=== PATIENT | female | born 1960 | race African-American/Black ===

== ENCOUNTER 2016-11-23 08:27 | Outpatient (CLI) | payer OTHER | END 2016-11-23 18:31 | disposition home or self-care (01) | LOC: SLB 08:27 | PROVIDERS: ATTEND Family Medicine | DX: E05.90 Thyrotoxicosis, unspecified without thyrotoxic crisis or storm (principal) | CPT/HCPCS: 36415; 84443-TC ==

== ENCOUNTER 2017-08-09 10:33 | Outpatient (CLI) | payer OTHER ==
[2017-08-09 11:14] LABS: BILIRUBIN,URINE NEGATIVE (NEGATIVE); BLOOD, URINE NEGATIVE (NEGATIVE); CLARITY/URINE CLEAR (CLEAR); COLOR,URINE YELLOW (YELLOW); GLUCOSE,URINE NEGATIVE (NEGATIVE); KETONES,URINE NEGATIVE (NEGATIVE); LEUKOCYTE ESTERASE ,URINE NEGATIVE (NEGATIVE); NITRITE, URINE NEGATIVE (NEGATIVE); PROTEIN URINE NEGATIVE (NEGATIVE); UROBILINOGEN,URINE 0.2 (0.2-1.0)
[2017-08-09 11:27] LABS: BASOPHILS # (AUTO) 0.1 K/uL (0.0-0.2); BASOPHILS % (AUTO) 1.8 % (0.0-2.0); EOSINOPHILS # (AUTO) 0.1 K/uL (0.0-0.4); EOSINOPHILS % (AUTO) 3.3 % (0.0-4.0); HEMATOCRIT 47.2 % (36-48); LYMPHOCYTES # (AUTO) 1.4 K/uL (1.0-5.5); LYMPHOCYTES % (AUTO) 40.2 % (20.5-51.5); MEAN CORPUSCULAR HEMOGLOBIN 30 pg (27-31); MEAN CORPUSCULAR HGB CONC 32 % (32-36); MEAN CORPUSCULAR VOLUME 93 fL (79.0-98.0); MONOCYTES # (AUTO) 0.3 K/uL (0.0-1.0); MONOCYTES % (AUTO) 8.7 % (1.7-9.3); NEUTROPHILS # (AUTO) 1.6 K/uL (1.8-7.7); PLATELET COUNT (AUTO) 285 K/uL (130-430); RED BLOOD CELL COUNT(AUTO) 5.09 MIL/uL (4.2-6.2); RED CELL DISTRIBUTION WIDTH 11.2 % (9.0-15.0); WHITE BLOOD COUNT (AUTO) 3.5 K/uL (4.8-10.8)
[2017-08-09 11:41] LABS: ALBUMIN 4.8 g/dL (3.4-4.8); BILIRUBIN,DIRECT 0.2 mg/dL (0.0-0.3); CALCIUM 9.4 mg/dL (8.4-11.0); CREATININE 0.82 mg/dL (0.55-1.30); POTASSIUM 3.5 mmol/L (3.5-5.1); THYROID STIMULATING HORMONE 2.1 uIu/mL (0.34-4.82); TOTAL BILIRUBIN 0.7 mg/dL (0.0-1.0); TOTAL IRON BIND. CAPACITY 363 ug/dL (250-450)
[2017-08-10 08:19] LABS: T3 UPTAKE 25 % (24-39); T4 (THYROXINE) 9.7 ug/dL (4.5-12.0)
[2017-08-10 09:22] LABS: FOLATE (FOLIC ACID) >20.0 ng/mL (>3.0); HEMOGLOBIN A1C 4.8 % (4.8-5.6)
[2017-08-11 15:04] LABS: CREATININE, URINE 70.3 mg/dL; MICROALBUMIN URINE RANDOM 4.6 ug/ml (NOT ESTABLISHED); MICROALBUMIN/CREAT RATIO, UR 6.5 MG/G CRE (0.0-30.0)
== END 2017-08-09 17:09 | disposition home or self-care (01) ==
LOC: SLB 10:33
PROVIDERS: ATTEND Family Medicine
DX: Z00.01 Encounter for general adult medical examination with abnormal findings (principal); R79.89 Other specified abnormal findings of blood chemistry
CPT/HCPCS: 36415; 80053; 80061; 81003; 82043; 82248-TC; 82306; 82570; 82607; 82746; 83036; 83540-TC; 83550-TC; 84436; 84443-TC; 84479; 85025

== ENCOUNTER 2017-08-23 08:31 | Outpatient (CLI) | payer OTHER | END 2017-08-23 18:55 | disposition home or self-care (01) | LOC: SMA 08:31 | PROVIDERS: ATTEND Family Medicine | DX: Z12.31 Encounter for screening mammogram for malignant neoplasm of breast (principal) | CPT/HCPCS: G0202 ==

== ENCOUNTER 2018-03-14 11:21 | Outpatient (CLI) | payer OTHER ==
[2018-03-14 12:36] LABS: ALBUMIN 4.2 g/dL (3.4-4.8); BILIRUBIN,DIRECT 0.2 mg/dL (0.0-0.3); TOTAL BILIRUBIN 0.5 mg/dL (0.0-1.0)
[2018-03-15 13:07] LABS: HEPATITIS A AB, IgM Negative (Negative); HEPATITIS B CORE AB, IgM Negative (Negative); HEPATITIS B SURFACE AG Negative (Negative)
== END 2018-03-14 19:26 | disposition home or self-care (01) ==
LOC: SLB 11:21
PROVIDERS: ATTEND Family Medicine
DX: R79.89 Other specified abnormal findings of blood chemistry (principal)
CPT/HCPCS: 36415; 80074; 80076; 82607

== ENCOUNTER 2018-08-20 09:49 | Outpatient (CLI) | payer OTHER ==
[2018-08-20 10:20] LABS: BASOPHILS % (AUTO) 0.9 % (0.0-2.0); EOSINOPHILS # (AUTO) 0.1 K/uL (0.0-0.4); EOSINOPHILS % (AUTO) 1.4 % (0.0-4.0); HEMATOCRIT 42.3 % (36-48); HEMOGLOBIN 14.1 g/dL (12.0-16.0); LYMPHOCYTES # (AUTO) 1.5 K/uL (1.0-5.5); LYMPHOCYTES % (AUTO) 39.7 % (20.5-51.5); MEAN CORPUSCULAR HEMOGLOBIN 31 pg (27-31); MEAN CORPUSCULAR HGB CONC 33 % (32-36); MEAN CORPUSCULAR VOLUME 92 fL (79.0-98.0); MONOCYTES # (AUTO) 0.3 K/uL (0.0-1.0); MONOCYTES % (AUTO) 8.3 % (1.7-9.3); NEUTROPHILS % (AUTO) 49.7 % (40.0-70.0); RED CELL DISTRIBUTION WIDTH 11.1 % (9.0-15.0); WHITE BLOOD COUNT (AUTO) 3.9 K/uL (4.8-10.8)
[2018-08-20 10:25] LABS: BILIRUBIN,URINE NEGATIVE (NEGATIVE); BLOOD, URINE NEGATIVE (NEGATIVE); CLARITY/URINE CLEAR (CLEAR); COLOR,URINE YELLOW (YELLOW); GLUCOSE,URINE NEGATIVE (NEGATIVE); KETONES,URINE NEGATIVE (NEGATIVE); LEUKOCYTE ESTERASE ,URINE NEGATIVE (NEGATIVE); NITRITE, URINE NEGATIVE (NEGATIVE); PROTEIN URINE NEGATIVE (NEGATIVE); UROBILINOGEN,URINE 0.2 (0.2-1.0)
[2018-08-20 10:38] LABS: PLATELET COUNT (AUTO) 258 K/uL (130-430)
[2018-08-20 10:53] LABS: ALBUMIN 4.5 g/dL (3.4-4.8); BILIRUBIN,DIRECT 0.2 mg/dL (0.0-0.3); CALCIUM 9.8 mg/dL (8.4-11.0); CREATININE 0.66 mg/dL (0.55-1.30); FREE T4 (FREE THYROXINE) 0.5 ng/dL (0.6-1.6); POTASSIUM 3.6 mmol/L (3.5-5.1); THYROID STIMULATING HORMONE 4.79 uIu/mL (0.34-4.82); TOTAL BILIRUBIN 0.6 mg/dL (0.0-1.0)
[2018-08-22 15:19] LABS: HEMOGLOBIN A1C 4.7 % (4.8-5.6)
== END 2018-08-20 20:44 | disposition home or self-care (01) ==
LOC: SLB 09:49
PROVIDERS: ATTEND Family Medicine
DX: Z00.00 Encounter for general adult medical examination without abnormal findings (principal)
CPT/HCPCS: 36415; 80053; 80061; 81003; 82248-TC; 82306; 82607; 83036; 84439; 84443-TC; 84479; 85025

== ENCOUNTER 2018-08-27 08:40 | Outpatient (CLI) | payer OTHER | END 2018-08-27 19:56 | disposition home or self-care (01) | LOC: SMA 08:40 | PROVIDERS: ATTEND Family Medicine | DX: Z12.31 Encounter for screening mammogram for malignant neoplasm of breast (principal) | CPT/HCPCS: 77067 ==

== ENCOUNTER 2019-04-02 08:13 | Outpatient (CLI) | payer OTHER | END 2019-04-02 21:12 | disposition home or self-care (01) | LOC: SMA 08:13 | PROVIDERS: ATTEND Family Medicine | DX: R92.2 Inconclusive mammogram (principal) | CPT/HCPCS: 76641; 77066 ==

== ENCOUNTER 2019-07-21 12:36 | Outpatient (CLI) | payer OTHER ==
[2019-07-21 13:24] LABS: BILIRUBIN,URINE NEGATIVE (NEGATIVE); BLOOD, URINE NEGATIVE (NEGATIVE); CLARITY/URINE CLEAR (CLEAR); COLOR,URINE YELLOW (YELLOW); GLUCOSE,URINE NEGATIVE (NEGATIVE); KETONES,URINE NEGATIVE (NEGATIVE); LEUKOCYTE ESTERASE ,URINE NEGATIVE (NEGATIVE); NITRITE, URINE NEGATIVE (NEGATIVE); PH,URINE 7.5 (5.0-8.0); PROTEIN URINE NEGATIVE (NEGATIVE); UROBILINOGEN,URINE 0.2 (0.2-1.0)
[2019-07-21 13:25] LABS: BASOPHILS # (AUTO) 0.1 K/uL (0.0-0.2); BASOPHILS % (AUTO) 1.5 % (0.0-2.0); EOSINOPHILS # (AUTO) 0.1 K/uL (0.0-0.4); EOSINOPHILS % (AUTO) 2.8 % (0.0-4.0); HEMATOCRIT 40.2 % (36-48); HEMOGLOBIN 13.7 g/dL (12.0-16.0); LYMPHOCYTES # (AUTO) 1.3 K/uL (1.0-5.5); LYMPHOCYTES % (AUTO) 37.4 % (20.5-51.5); MEAN CORPUSCULAR HEMOGLOBIN 32 pg (27-31); MEAN CORPUSCULAR HGB CONC 34 % (32-36); MEAN CORPUSCULAR VOLUME 94 fL (79.0-98.0); MONOCYTES # (AUTO) 0.3 K/uL (0.0-1.0); MONOCYTES % (AUTO) 8.2 % (1.7-9.3); NEUTROPHILS # (AUTO) 1.8 K/uL (1.8-7.7); NEUTROPHILS % (AUTO) 50.1 % (40.0-70.0); PLATELET COUNT (AUTO) 248 K/uL (130-430); RED BLOOD CELL COUNT(AUTO) 4.27 MIL/uL (4.2-6.2); RED CELL DISTRIBUTION WIDTH 11.6 % (9.0-15.0); WHITE BLOOD COUNT (AUTO) 3.5 K/uL (4.8-10.8)
[2019-07-21 13:52] LABS: ALBUMIN 4.2 g/dL (3.4-4.8); BILIRUBIN,DIRECT 0.1 mg/dL (0.0-0.3); CALCIUM 9.3 mg/dL (8.4-11.0); CREATININE 0.72 mg/dL (0.55-1.30); FREE T4 (FREE THYROXINE) 0.9 ng/dl (0.8-1.5); PHOSPHORUS 3.7 mg/dL (2.7-4.5); THYROID STIMULATING HORMONE 2.63 uIu/mL (0.36-3.74); TOTAL BILIRUBIN 0.5 mg/dL (0.0-1.0)
== END 2019-07-21 21:01 | disposition home or self-care (01) ==
LOC: SLB 12:36
PROVIDERS: ATTEND Family Medicine
DX: M19.031 Primary osteoarthritis, right wrist (principal); M19.021 Primary osteoarthritis, right elbow; E03.9 Hypothyroidism, unspecified
CPT/HCPCS: 36415; 80053; 80061; 81003; 82248-TC; 82607; 83036; 84100-TC; 84439; 84443-TC; 84479; 85025

== ENCOUNTER 2019-08-01 08:49 | Outpatient (CLI) | payer OTHER | END 2019-08-01 14:00 | disposition home or self-care (01) | LOC: SRD 08:49 | DX: A15.9 Respiratory tuberculosis unspecified (principal) | CPT/HCPCS: 71046-TC ==

== ENCOUNTER 2020-04-22 12:30 | Outpatient (CLI) | payer OTHER ==
[2020-04-22 13:10] LABS: HEMATOCRIT 39.6 % (36-48); HEMOGLOBIN 13.2 g/dL (12.0-16.0); MEAN CORPUSCULAR HEMOGLOBIN 31 pg (27-31); MEAN CORPUSCULAR HGB CONC 33 % (32-36); MEAN CORPUSCULAR VOLUME 93 fL (79.0-98.0); PLATELET COUNT (AUTO) 264 K/uL (130-430); RED BLOOD CELL COUNT(AUTO) 4.27 MIL/uL (4.2-6.2); RED CELL DISTRIBUTION WIDTH 11.5 % (9.0-15.0); WHITE BLOOD COUNT (AUTO) 3.2 K/uL (4.8-10.8)
[2020-04-22 13:24] LABS: BILIRUBIN,URINE NEGATIVE (NEGATIVE); BLOOD, URINE NEGATIVE (NEGATIVE); CLARITY/URINE CLEAR (CLEAR); COLOR,URINE YELLOW (YELLOW); GLUCOSE,URINE NEGATIVE (NEGATIVE); KETONES,URINE NEGATIVE (NEGATIVE); LEUKOCYTE ESTERASE ,URINE TRACE (NEGATIVE); NITRITE, URINE NEGATIVE (NEGATIVE); PH,URINE 7.5 (5.0-8.0); PROTEIN URINE NEGATIVE (NEGATIVE); UROBILINOGEN,URINE 0.2 (0.2-1.0)
[2020-04-22 13:28] LABS: BACTERIA,URINE RARE /HPF (None Seen); RBC,URINE 0-3 /HPF (0-3)
[2020-04-22 13:36] LABS: ALANINE AMINOTRANSFERASE 28 U/L (12-78); ANION GAP 5 (5-15); ASPARTATE AMINOTRANSFERASE 19 U/L (10-37); CALCIUM 9.6 mg/dL (8.4-11.0); CHLORIDE 104 mmol/L (98-107); CHOLESTEROL 159 mg/dL (<200); CREATININE 0.76 mg/dL (0.55-1.30); GLUCOSE 94 mg/dL (70-99); HDL CHOLESTEROL 78 mg/dL (>55); LDL CHOLESTEROL 74 mg/dL (<100); POTASSIUM 4.6 mmol/L (3.5-5.1); SODIUM SERUM 141 mmol/L (136-145); THYROID STIMULATING HORMONE 1.98 uIu/mL (0.34-4.82); TOTAL BILIRUBIN 0.5 mg/dL (0.0-1.0); UREA NITROGEN, BLOOD 11 mg/dL (8-21)
[2020-04-22 13:48] LABS: GFR AFRICAN AMERICAN 99 mL/min (>90)
[2020-04-22 14:38] LABS: TRIGLYCERIDES < 15 mg/dL (30-150)
== END 2020-04-22 19:46 | disposition home or self-care (01) ==
LOC: SLB 12:30
PROVIDERS: ATTEND Family Medicine
DX: Z00.00 Encounter for general adult medical examination without abnormal findings (principal); E03.9 Hypothyroidism, unspecified
CPT/HCPCS: 36415; 80053; 80061; 81000-TC; 83036; 83051; 84439; 84443-TC; 84479; 85014-TC; 85048; 85049-TC; 87086

== ENCOUNTER 2020-04-26 07:45 | Outpatient (CLI) | payer OTHER | END 2020-04-26 20:27 | disposition home or self-care (01) | LOC: SMA 07:45 | PROVIDERS: ATTEND Family Medicine | DX: Z12.31 Encounter for screening mammogram for malignant neoplasm of breast (principal) | CPT/HCPCS: 77067 ==

== ENCOUNTER 2021-04-07 09:41 | Outpatient (CLI) | payer OTHER ==
[2021-04-07 10:16] LABS: EOSINOPHILS % (AUTO) 1.4 % (0.0-4.0); HEMATOCRIT 40.4 % (36-48); HEMOGLOBIN 13.5 g/dL (12.0-16.0); LYMPHOCYTES # (AUTO) 1.3 K/uL (1.0-5.5); LYMPHOCYTES % (AUTO) 43.5 % (20.5-51.5); MEAN CORPUSCULAR HEMOGLOBIN 31 pg (27-31); MEAN CORPUSCULAR HGB CONC 33 % (32-36); MEAN CORPUSCULAR VOLUME 93 fL (79.0-98.0); MONOCYTES # (AUTO) 0.3 K/uL (0.0-1.0); MONOCYTES % (AUTO) 10.1 % (1.7-9.3); NEUTROPHILS # (AUTO) 1.4 K/uL (1.8-7.7); PLATELET COUNT (AUTO) 233 K/uL (130-430); RED BLOOD CELL COUNT(AUTO) 4.34 MIL/uL (4.2-6.2); RED CELL DISTRIBUTION WIDTH 11.5 % (9.0-15.0); WHITE BLOOD COUNT (AUTO) 3.1 K/uL (4.8-10.8)
[2021-04-07 10:19] LABS: BILIRUBIN,URINE NEGATIVE (NEGATIVE); BLOOD, URINE NEGATIVE (NEGATIVE); CLARITY/URINE CLEAR (CLEAR); COLOR,URINE YELLOW (YELLOW); GLUCOSE,URINE NEGATIVE (NEGATIVE); KETONES,URINE NEGATIVE (NEGATIVE); LEUKOCYTE ESTERASE ,URINE NEGATIVE (NEGATIVE); NITRITE, URINE NEGATIVE (NEGATIVE); PH,URINE 7.5 (5.0-8.0); PROTEIN URINE NEGATIVE (NEGATIVE); UROBILINOGEN,URINE 0.2 (0.2-1.0)
[2021-04-07 10:42] LABS: ALBUMIN 4.2 g/dL (3.4-4.8); BILIRUBIN,DIRECT 0.1 mg/dL (0.0-0.3); CALCIUM 9.1 mg/dL (8.4-11.0); CREATININE 0.74 mg/dL (0.55-1.30); POTASSIUM 4.2 mmol/L (3.5-5.1); THYROID STIMULATING HORMONE 0.83 uIu/mL (0.34-4.82); TOTAL BILIRUBIN 0.5 mg/dL (0.0-1.0)
[2021-04-08 09:25] LABS: HEMOGLOBIN A1C 4.7 % (4.8-5.6)
== END 2021-04-07 19:28 | disposition home or self-care (01) ==
LOC: SLB 09:41
PROVIDERS: ATTEND Family Medicine
DX: Z00.00 Encounter for general adult medical examination without abnormal findings (principal); Z13.220 Encounter for screening for lipoid disorders; E03.9 Hypothyroidism, unspecified; R07.89 Other chest pain
CPT/HCPCS: 36415; 80048; 80061; 80076; 81003; 82607; 83036; 84443; 85025; 87086

== ENCOUNTER 2021-04-27 08:27 | Outpatient (CLI) | payer OTHER | END 2021-04-27 20:36 | disposition home or self-care (01) | LOC: SMA 08:27 | PROVIDERS: ATTEND Family Medicine | DX: Z12.31 Encounter for screening mammogram for malignant neoplasm of breast (principal) | CPT/HCPCS: 77067 ==

== ENCOUNTER 2021-07-26 11:36 | Outpatient (CLI) | payer OTHER | END 2021-07-26 20:16 | disposition home or self-care (01) | LOC: SRD 11:36 | PROVIDERS: ATTEND Family Medicine | DX: M25.461 Effusion, right knee (principal) | CPT/HCPCS: 72110; 73564 ==

== ENCOUNTER 2021-08-10 09:01 | Outpatient (CLI) | payer OTHER | END 2021-08-10 19:01 | disposition home or self-care (01) | LOC: SMI 09:01 | PROVIDERS: ATTEND Family Medicine | DX: M25.461 Effusion, right knee (principal) | CPT/HCPCS: 73721 ==

== ENCOUNTER 2021-09-07 09:00 | Outpatient (CLI) | payer OTHER | END 2021-09-07 19:35 | disposition home or self-care (01) | LOC: SMI 09:00 | PROVIDERS: ATTEND Family Medicine | DX: M43.16 Spondylolisthesis, lumbar region (principal); M51.27 Other intervertebral disc displacement, lumbosacral region; M46.06 Spinal enthesopathy, lumbar region; N32.89 Other specified disorders of bladder; R10.2 Pelvic and perineal pain | CPT/HCPCS: 72148; 72195 ==

== ENCOUNTER 2021-09-26 10:15 | Outpatient (CLI) | payer OTHER | END 2021-09-26 20:35 | disposition home or self-care (01) | LOC: SCT 10:15 | PROVIDERS: ATTEND Family Medicine | DX: R51.9 Headache, unspecified (principal) | CPT/HCPCS: 70450-TC; 76376 ==